=== PATIENT | female | born 1955 | race Caucasian/White ===

== ENCOUNTER 2025-03-23 11:28 | Emergency (ER) | payer MEDICARE, SELFPAY ==
--- NOTE | ~2025-03-23 | CT_ITS ---
CLINICAL HISTORY: LLQ pain hx divertic CT abdomen and pelvis with contrast Comparison: None Findings: No consolidation or effusion. Gallbladder is surgically absent. Minimal intrahepatic biliary ductal prominence. Common bile duct is normal. The spleen, pancreas and adrenal glands are unremarkable. Bilateral kidneys enhance normally with no ureteral stones and no hydronephrosis or hydroureter. No bowel obstruction, pneumoperitoneum, or pneumatosis. Mild diverticulosis with no evidence of acute diverticulitis. No free fluid. No loculated fluid collection. Pelvic contents unremarkable. Normal appendix. Mild atherosclerotic vascular disease. No aneurysm of abdominal aorta. No acute fracture. Degenerative changes lumbar spine and facet arthropathy especially at L5-S1. IMPRESSION: No acute findings. This document has been electronically signed by: Marti Guevara MD on 03/23/2025 17:38:23
[2025-03-23 11:47] VITALS: BP 119/60; PULSE 72; RESP 16; TEMP 36.6; O2SAT 99; BMI 30.5
--- NOTE | 2025-03-23 11:50 | ED_ITS ---
HPI - Abdominal Pain General Chief Complaint: Abdominal Pain Stated Complaint: Abd Pain, Lower L Side Pain, Back Pain Time Seen by Provider: 03/23/25 14:33 Source: patient and family () Mode of arrival: ambulatory Limitations: no limitations History of Present Illness ED Provider: SHERRY BAINS PA-C HPI narrative: 69 year-old female with pmhx of choleysystectomy (2019), diverticulosis/ diverticulitis presenting with LLQ abdominal pain, left flank pain, dysuria and diarrhea x 6 days. Patient reports a dull and sharp abdominal pain in the LLQ that periodically radiates to the RLQ. Her last BM was this morning. Reports intermittent diarrhea and constipation x1 week. She also reports intermittent dysuria that started around the same time. Patient reports last meal was last night and has not eaten anything today. Denies fever, chills, chest pain, sob, hematuria, vaginal discharge/bleeding, hematochezia, melena. no recent abx. no recent travel. Related Data Previous Rx's ?Medication ?Instructions ?Recorded cefuroxime axetil 250 mg tablet 250 mg PO BID 7 days #14 tabs 03/23/25 Allergies Allergy/AdvReac Type Severity Reaction Status Date / Time carbamide peroxide Allergy Unknown Verified 03/23/25 11:49 [From Debrox] clarithromycin [From Biaxin] Allergy Unknown Verified 03/23/25 11:49 doxycycline Allergy Unknown Verified 03/23/25 11:49 Penicillins [PCN] Allergy Unknown Verified 03/23/25 11:49 Review of Systems Review of Systems Yes all other systems are reviewed and are negative PMFSH Past Medical History Attestation statement: The following information was validated with the patient. Source: old records reviewed and nursing notes reviewed Physical Exam ED Vital Signs: Vital Signs - 24 hr 03/23/25 11:47 03/23/25 13:38 03/23/25 14:00 Temperature 97.8 F 97.0 F Pulse Rate 72 64 66 Respiratory Rate 16 18 18 Blood Pressure 119/60 120/59 L 149/62 H Pulse Oximetry 99 99 99 Oxygen Delivery Method Room Air Room Air Room Air 03/23/25 16:00 03/23/25 18:00 03/23/25 18:47 Temperature 97.0 F 97.0 F Pulse Rate 71 66 66 Respiratory Rate 18 16 16 Blood Pressure 122/66 123/68 123/68 Pulse Oximetry 94 96 96 Oxygen Delivery Method Room Air Room Air BMI result Body Mass Index 30.5 vital signs stable, afebrile General: Well appearing, in no acute distress. Skin: Warm, dry, intact. No rashes or lesions. Head: Normocephalic, atraumatic. EENT: Hearing is intact b/l. Conjunctiva clear. PERRLA. EOM intact. Moist mucous membranes.? Neck: Supple without LAD Cardiac: Chest wall symmetric. RRR Lungs: Normal respiratory effort without accessory muscle use. CTA bilaterally. Abdomen: soft, nondistended, ttp of LLQ without rebound or guarding. no cvat. active bs x4. Rectal exam performed with Lu wade present in room to compliance paralegal. Normal rectal sphincter tone. No external masses or lesions. Palpable soft stool in rectal vault. Stool is normal in appearance. OBS negative. Back: No midline spinous or paraspinal tenderness. No step off deformity. Ext: Upper and lower extremities atraumatic, without tenderness, deformity, swelling or erythema Neuro: AOx3. Normal speech. Ambulating with steady gait. Course Course Course Narrative: This is a Rapid Medical Exam performed in triage by Karuna Garvin PA-C. Full HPI, ROS and PE to be performed by primary ED provider. 69 yo F w/PMHx DM, presenting to the ED c/o LLQ abd pain & L flank pain w/dysuria & diarrhea x6 days PE: abd soft w/lower ttp & b/l CVAT, no rebound or guarding Plan: labs, UA, CT Reevaluation(s) Reevaluation #1: cbc without leukocytosis or left shift. normocytic anemia, no priors to compare to. OBS negative. Chemistry showing hypomagnesemia to 1.4 > repletion ordered. no other acute electrolyte abnormality requiring intervention. lipase wnl. liver function around baseline. BUN 20, normal creatinine. UA w/ leukocytes, wbcs, and trace bacteria - will treat UTI w/ ceftin. CT a/p unremarkable. > discussed all work up results w/ patient. treated w/ IVF, morphine, zofran w/ good effect. tolerating PO. Patient has remained stable throughout ED visit today. Discussed worrisome signs and symptoms and when to return to the ED. All questions answered at this time. Patient is agreeable with disposition and stable for discharge. Medical Decision Making Medical Decision Making [facility] Narrative: 69 year-old female with pmhx of choleysystectomy (2019), diverticulosis/ diverticulitis presenting with LLQ abdominal pain, left flank pain, dysuria and diarrhea x 6 days. vital signs stable, afebrile. she is nontoxic appearing and in NAD. lying comfortably on the exam bed. on exam, her abdomen is soft, nondistended, ttp of LLQ without rebound or guarding. no cvat. active bs x4. Rectal exam performed with [employer] present in room to compliance paralegal. Normal rectal sphincter tone. No external masses or lesions. Palpable soft stool in rectal vault. Stool is normal in appearance. OBS negative. Differential diagnoses: appendicitis, diverticulitis, diverticulosis, UTI, constipation, renal colic, nephrolithiasis Abdominal exam without peritoneal signs. No evidence of acute abdomen at this time. Well appearing. Low suspicion for acute hepatobiliary disease (including acute cholecystitis), acute infectious processes (pneumonia, hepatitis, pyelonephritis, PID, TOA), vascular catastrophe, bowel obstruction or viscus perforation, ovarian cyst/ rupture/ torsion. Presentation not consistent with other acute, emergent causes of abdominal pain at this time. Plan: labs, UA, CT AP, pain control, fluids, serial reassessment Differential Diagnosis Differential Diagnoses: The differential diagnosis associated with the presentation includes As above Admission/Observation Not indicated Lab Data [facility] Lab Attestation statement: I reviewed the patient's lab results. as above 03/23/25 12:07 03/23/25 12:07 Labs: Lab Results 03/23/25 03/23/25 Range/Units 12:07 17:52 WBC 5.8 (4.8-10.8) X10*3/uL RBC 4.41 (4.20-5.50) X10*6/uL Hgb 10.9 L (12.0-16.0) g/dl Hct 35.4 L (37.0-47.0) % MCV 80.3 (80.0-98.0) fL MCH 24.7 L (27.0-33.0) pg MCHC 30.8 L (31.0-35.0) g/dl RDW 15.1 (11.0-16.0) % Plt Count 270 (160-400) X10*3/uL MPV 11.0 (9.4-12.3) fL Immature Gran % (Auto) 0.3 (0.0-0.4) % Neut % (Auto) 66.3 (45-73) % Lymph % (Auto) 23.1 (20-40) % Tillman % (Auto) 6.6 (2-11) % Eos % (Auto) 2.8 (0-4) % Baso % (Auto) 0.9 (0-2) % Lymph # (Auto) 1.3 (1.2-4.9) X10*3/uL Tillman # (Auto) 0.4 (0.1-1.2) X10*3/uL Eos # (Auto) 0.2 (0.0-0.4) X10*3/uL Baso # (Auto) 0.1 (0.0-0.2) X10*3/uL Abs Immat Gran (auto) 0.02 (0.00-0.03) X10*3/uL Absolute Neuts (auto) 3.8 (2.0-8.3) x10*3/uL Absolute Nucleated RBC 0.000 (0.0-0.012) X10*3/uL Nucleated RBC % (auto) 0.0 (0.0-0.2) /100WBC Sodium 140 (135-145) mmol/L Potassium 5.0 (3.3-5.1) mmol/L Chloride 106 (96-108) mmol/L Carbon Dioxide 28 (22-29) mmol/L Anion Gap 11 L (12-20) BUN 20 H (9-16) mg/dL Creatinine 1.16 (0.5-1.4) mg/dL Estim Creat Clear Calc 42.3 Estimated GFR 46 Random Glucose 123 H (60-115) mg/dL Calcium 10.2 (8.4-10.2) mg/dL Magnesium 1.4 L* (1.6-2.6) mg/dL Total Bilirubin 0.3 (0.0-1.0) mg/dL Direct Bilirubin 0.1 (0.0-0.5) mg/dL AST 22 (5-31) U/L ALT 28 (0-31) U/L Alkaline Phosphatase 66 (39-117) U/L Total Protein 6.9 (6.5-8.0) g/dL Albumin 4.3 (3.5-5.0) g/dL Lipase 13 (8-78) U/L Urine Color Yellow Urine Appearance Clear Urine pH 5.5 (5.0-9.0) Ur Specific Montgomery 1.010 (1.005-1.025) Urine Protein Negative (Neg-Trace) mg/dL Urine Glucose (UA) Negative (Negative) mg/dL Urine Ketones Negative (Negative) mg/dL Urine Blood Negative (Negative) Urine Nitrite Negative (Negative) Ur Leukocyte Esterase Large (3+) H (Negative) Urine RBC 0-2 (0-2) /HPF Urine WBC 21-50 H (0-5) /HPF Ur Squamous Epith Cells 0-2 (0-2) /HPF Urine Bacteria Trace (None Seen) Hyaline Casts 0-2 (0-2) /LPF Stool Occult Blood NEGATIVE (NEGATIVE) Independent Interpretation I performed an independent interpretation of an: CT Scan Interpretation: ct a/p with stool throughout colon, no bowel obstruction Radiology Impression Discussion of test interpretation with radiology: I have reviewed the radiologist's reading. Radiologist Impression: Procedure(s): CT abdomen pelvis w IV con Accession Number(s): [id number] cc: Patricio Collier MD; Sherry Bains~ Report Number: [id number]: Total DLP = 660.00 mGy-cm CLINICAL HISTORY: LLQ pain hx divertic CT abdomen and pelvis with contrast Comparison: None Findings: No consolidation or effusion. Gallbladder is surgically absent. Minimal intrahepatic biliary ductal prominence. Common bile duct is normal. The spleen, pancreas and adrenal glands are unremarkable. Bilateral kidneys enhance normally with no ureteral stones and no hydronephrosis or hydroureter. No bowel obstruction, pneumoperitoneum, or pneumatosis. Mild diverticulosis with no evidence of acute diverticulitis. No free fluid. No loculated fluid collection. Pelvic contents unremarkable. Normal appendix. Mild atherosclerotic vascular disease. No aneurysm of abdominal aorta. No acute fracture. Degenerative changes lumbar spine and facet arthropathy especially at L5-S1. IMPRESSION: No acute findings. Prescription Management I considered prescription management with: Antibiotic (ceftin) Social Determinants Patient?s care significantly limited by Social Determinants of Health including: Other Social Determinant of Health Medications Administered Discontinued Medications Generic Name Dose Route Start Last Admin Trade Name Cr PRN Reason Stop Dose Admin Cefuroxime Axetil 250 mg 03/23/25 18:13 03/23/25 18:44 Cefuroxime Axetil 250 Mg Tablet PO 03/23/25 18:14 250 mg ONCE ONE Administration Magnesium Sulfate 2 gm in 50 mls @ 25 mls/hr 03/23/25 14:16 03/23/25 16:35 Magnesium Sulfate/H2o IV 03/23/25 16:15 Infused ONCE ONE Infusion Sodium Chloride 1,000 mls @ 999 mls/hr 03/23/25 14:30 03/23/25 15:36 Ns IV 03/23/25 15:30 Infused .Q1H1M CHET Infusion Iohexol 100 ml 03/23/25 16:58 03/23/25 16:58 Iohexol 350 Mg/Ml 100 Ml Infus..Btl IV 03/23/25 16:59 85 ml ONCE ONE Administration Morphine Sulfate 4 mg 03/23/25 15:00 03/23/25 15:32 Morphine Sulfate 4 Mg/Ml Cartridge IVPUSH 03/23/25 15:01 4 mg ONCE ONE Administration Protocol Ondansetron HCl 4 mg 03/23/25 15:00 03/23/25 15:32 Ondansetron Hcl 4 Mg/2 Ml Vial IVPUSH 03/23/25 15:01 4 mg ONCE ONE Administration Critical Care Time Critical Care Time Critical Care Time: No Discharge Plan Discharge Clinical Impression: Urinary tract infection, Constipation, Hypomagnesemia Patient Disposition: Home, Self-Care Instructions: Urinary Tract Infection in Women (ED) Additional Instructions: Your workup today is reassuring. Your lab work is unremarkable. The CT of your abdomen is normal. Your urine is infected. I am starting you on an antibiotic for this (ceftin). Take this as prescribed over the next 7 days. I recommend using stool softeners such as colace 100 mg twice daily. In addition, take over the counter miralax 2-3 times daily until you begin having multiple large volume bowel movements. Return with new or worsening symptoms. In the case of an emergency call 911. Prescriptions: New cefuroxime axetil 250 mg tablet 250 mg PO BID 7 Days Qty: 14 0RF Referrals: Patricio Collier MD [Primary Care Provider] - Interventions: ED Discharge Assessment Last Done: 03/23/25 18:47 Discharge Date/Time: 03/23/25 18:49 Print Language: Mexican
[2025-03-23 12:11] LABS: MANUAL DIFF FLAG NO
[2025-03-23 12:14] LABS: Appearance Urine Clear; Basophils Absolute Auto 0.1 X10*3/uL (0.0-0.2); Basophils Percent Auto 0.9 % (0-2); Color Urine Yellow; Eosinophils Absolute Auto 0.2 X10*3/uL (0.0-0.4); Eosinophils Percent Auto 2.8 % (0-4); Glucose Urine UA Negative (Negative); Hematocrit 35.4 % (37.0-47.0); Hemoglobin 10.9 g/dl (12.0-16.0); Imm Gran Abs Auto 0.02 X10*3/uL (0.00-0.03); Imm Gran Pct Auto 0.3 % (0.0-0.4); Leukocyte Esterase Urine Large (3+) (Negative); Lymphocytes Absolute Auto 1.3 X10*3/uL (1.2-4.9); Lymphocytes Percent Auto 23.1 % (20-40); Mean Corpuscular HGB Conc 30.8 g/dl (31.0-35.0); Mean Corpuscular Hemoglobin 24.7 pg (27.0-33.0); Mean Corpuscular Volume 80.3 fL (80.0-98.0); Monocytes Absolute Auto 0.4 X10*3/uL (0.1-1.2); Monocytes Percent Auto 6.6 % (2-11); Neutrophils Absolute Auto 3.8 x10*3/uL (2.0-8.3); Neutrophils Percent Auto 66.3 % (45-73); Nitrite Urine Negative (Negative); PH 5.5 (5.0-9.0); Platelet Count 270 X10*3/uL (160-400); Red Blood Count 4.41 X10*6/uL (4.20-5.50); Red Cell Distribution Width 15.1 % (11.0-16.0); UMIC TRIGGER UACC YES; Urine Blood Negative (Negative); Urine Ketones Negative (Negative); Urine Protein Negative (Neg-Trace); White Blood Count 5.8 X10*3/uL (4.8-10.8)
[2025-03-23 12:17] LABS: Bacteria Urine Trace (None Seen); Hyaline Casts Urine 0-2 /LPF (0-2); RBC Urine 0-2 /HPF (0-2); Squamous Epithelial Cell Urine 0-2 /HPF (0-2); UACC Culture Trigger YES; WBC Urine 21-50 /HPF (0-5)
[2025-03-23 12:32] LABS: Alanine Aminotransferase 28 U/L (0-31); Albumin Level 4.3 g/dL (3.5-5.0); Alkaline Phosphatase 66 U/L (39-117); Anion Gap 11 (12-20); Aspartate Amino Transferase 22 U/L (5-31); Bilirubin Direct 0.1 mg/dL (0.0-0.5); Bilirubin Total 0.3 mg/dL (0.0-1.0); Blood Urea Nitrogen 20 mg/dL (9-16); Calcium 10.2 mg/dL (8.4-10.2); Carbon Dioxide 28 mmol/L (22-29); Chloride 106 mmol/L (96-108); Creatinine Clr Calc Pharmacy 42.3; Estimated Glomerular Filt Rate 46; Glucose Random 123 mg/dL (60-115); Lipase 13 U/L (8-78); Sodium 140 mmol/L (135-145); Total Protein 6.9 g/dL (6.5-8.0)
[2025-03-23 12:33] LABS: Magnesium 1.4 mg/dL (1.6-2.6)
[2025-03-23 13:38] VITALS: BP 120/59; PULSE 64; RESP 18; TEMP 36.1; O2SAT 99
--- NOTE | 2025-03-23 13:51 | PC.NURSE ---
Patient presents with c/o feeling unwell with lower abdominal pain underneath umbilicus with assoc nausea, poor appetite and diarrhea yesterday. Patient alert and oriented, appears uncomfortable. Lungs clear bilat. Respirations even and non-labored. ABdomen soft, with positive bowel sounds. c/o lower abdominal pain with assoc pain with urination. No significant tenderness noted. Positive pedal pulses with no edema noted. Pending Provider eval.
[2025-03-23 14:00] VITALS: BP 149/62; PULSE 66; RESP 18; O2SAT 99
[2025-03-23] MEDS: 0.9 % Sodium Chloride 1,000 ML 999 ML IV (14:35)
[2025-03-23] MEDS: Magnesium Sulfate/H2O 2 GM/50 ML PIGGYBACK IV (14:35)
[2025-03-23] MEDS: Morphine Sulfate 4 MG/ML CARTRIDGE IVPUSH (15:32)
[2025-03-23] MEDS: ondansetron HCL 4 MG/2 ML VIAL IVPUSH (15:32)
--- OUTSIDE RECORDS SUMMARY | 2025-03-23 15:32 | XMS_ITS | Continuity of Care Document ---
Author Organization [facility] [address] [place] [address] Phone [phone] Care Team Providers Care Deputy Court Name Role Phone Patricio Collier M.D. Care Team Information Recyclable Products Sorter [phone] Problems Active Problems Provider Date Hypothyroidism VALENTIN Lanier Onset: 2023 Hypercholesterolemia VALENTIN Lanier Onset: 1 12/22/2023 Essential hypertension VALENTIN Lanier Onset: 10/22/2024 Type 2 diabetes mellitus VALENTIN Lanier Onse t: 10/22/2024 Social History Type Date Description Comments Sex Unknown Marital Status Legal Status: ETOH Use Rarely consumes alcohol Tobacco Use Start: Unknown Patient has never smoked Smoking Status Reviewed: 10/22/24 Patient has never sm oked Medications Active Medications SIG Qnty Indications Order ing Provider Date Levothyroxine [id number] Tablets 1 by mouth every day 90tabs Claire Ash M.D. 12/19/2024 Terconazole0.8% Cream Insert One Applicatorful Vaginally AT Bedtime For 3 Consecutive Nights Sury Calles M.D. Clotrimazole/Betamet hasone Dipropionate1-0.05% Cream Apply Topically To The Affected Area Twice Daily For 10 Days Unknown Carvedilol3.125mg Tablets Unknown [id number] Tablets Patricio Collier M.D. Metformin [id number] Tablets Patricio Collier M.D. [id number] Capsules Patricio Larson M.D. [id number] Tablets Patricio Collier M.D. Vital Signs Date Vital Result Comment 03/16/2025 10:28am BP Systolic 130 mmHg BP Diastolic 70 mmHg Heart Rate 94 /min Height 62 inches 5'2 Weight 173.25 lb BMI (Body Mass Index) 31.7 kg/m2 Results Test Acquired Date Facility Test Result H/L Range Note TSH+Free T4 03/10/2025 [facility] TSH 0.022 uIU/mL Low 0.450-4. 500 T4,Free(Direct) 2.06 ng/dL High 0.82-1.7 7 Triiodothyronine (T3), Free 03/10/2025 [facility] Triiodothyronine (T3), Free 2.4 pg/mL 2.0-4.4 TSH Rfx on Abnormal to Free T4 12/16/2024 [facility] TSH RFX On Abnormal To Free T4 <0.005 uIU/mL Low 0.450-4. 500 T4,Free (Direct) 3.49 ng/dL High 0.82-1.7 7 Thyroid Peroxidase (Tpo) Ab 10/22/2024 [facility] Thyroid Peroxidase (Tpo) Ab 12 IU/mL 0-34 Thyrotropin Receptor Ab, Serum 10/22/2024 [facility] Thyrotropin Receptor Ab, Serum <1.10 IU/L 0.00-1.7 5 TSH Rfx on Abnormal to Free T4 10/22/2024 [facility] TSH RFX On Abnormal To Free T4 0.040 uIU/mL Low 0.450-4. 500 T4,Free (Direct) 1.87 ng/dL High 0.82-1.7 7 Medical Devices Description No Information Available Encounters Type Date Location Provider Dx Diagnosis Office Visit 03/16/2025 10:00a Main Office VALENTIN Lanier E03.9 Hypothyroidis m, unspecified Assessments Date Code Description Provider 03/16/2025 E03.9 Hypothyroidism, unspecified VALENTIN Lanier Plan of Treatment Future Appointment(s):* 06/15/2025 10:15 am - VALENTIN Lanier at Main Office 03/16/2025 - VALENTIN Lanier* E03.9 Hypothyroidism, unspecified* New Labs:* TSH RFX On Abnormal To Free T4, Ordered: 03/16/25 Functional Status Description No Information Available Mental Status Description No Information Available Referrals Description No Information Available
--- OUTSIDE RECORDS SUMMARY | 2025-03-23 15:32 | XMS_ITS ---
Author Organization [facility] Address [address] [place] [address] Care Team Providers Care Refrigerator Repairman Name Role Phone Patricio Collier MD Primary Care Provider Sury Upton Unavailable [phone] REASON FOR VISIT STILL HAVING SYPTOMS Medications Medication SIG (Take, Route, Fr equency, Duration) Notes Start Date End Date Status Terconazole 3 0.8 % 1 applicatorful at b edtime Vaginal EVERY NIGHT FOR 6 NIGHTS for 6 days 09/20/2024 Active Encounters Encounter Location Date Provider Diagnosis [facility] [address] [address] 09/20/2024 Sury Calles Plan Of Treatment Medication Medication Name Sig Start Date Stop Date Notes Terconazole 3 0.8 % 1 applicatorful at b edtime Vaginal EVERY NIGHT FOR 6 NIGHTS for 6 days 09/20/2024 Progress Notes * RENNY CASTANONOB:1955 (69 yo F)Acc No.[id number]:09/20/2024 Patient:?IVANA CASTANON :1955???Age:69 Y???Sex:Female Address:[address] [place] [address], , [place], [address] * Refills? Start Terconazole 3 Cream, 0.8 %, Vaginal, 40 Gram, 1 applicatorful at bedtime, EVERY NIGHT FOR 6 NIGHTS, 6 days, Refills=5 * true * Date:? Generated for Dorisi lamonte/Ameliag/eTransmitting on:?03/23/2025 03:32 PM EDT
--- OUTSIDE RECORDS SUMMARY | 2025-03-23 15:32 | XMS_ITS | Patient Health Record ---
Author Organization [facility] Address [address] [place] [address] Care Team Providers Care Inspector Production Plastic Parts Name Role Phone Patricio Collier MD Primary Care Provider Sury Upton Unavailable [phone] GLENIS RENNER Unavailable [phone] Allergies Allergen (clinical drug ingredient) Drug/Non Drug Allergy documented on EMR Reaction Allergy Type Onset Date Status PENICILLIN unknown Drug Allergy Active BIAXIN unknown Drug Allergy Active carbamide peroxide DEBROX swelling in ears Drug Allergy Active Results Component Value Reference Range Notes PDF Report Reviewed date:09/09/2024 04:46:13 PM Interpretation: Performing Lab:[facility] [place], [address], [address], [email or web address], Phone - [phone], Director - [facility] Notes/Report: Urine Culture, Routine-[id number] Reviewed date:09/14/2024 09:26:17 AM Interpretation: Performing Lab:[facility] [place], [address], [address], [email or web address], Phone - [phone], Director - [facility] Notes/Report: Urine Culture, Routine Final report Result 1 Mixed urogenital gilbert Greater than 100,000 colony forming units per mL Urinalysis Reviewed date:09/07/2024 03:16:03 PM Interpretation: Performing Lab: Notes/Report: NITRITE NEG PH 5.0 PROTEIN NEG S.G 1.015 WBC MOD GLUCOSE LG KETONES NEG UROBILINOGEN NEG BILIRUBIN NEG BLOOD TR Reason For Referral No Information Medications Medication SIG (Take, Route, Frequency, Duration) Notes Start Date End Date Status Terconazole 3 0.8 % 1 applicatorful at b edtime Vaginal EVERY NIGHT FOR 6 NIGHTS for 6 days 09/20/2024 Active Carvedilol 3.125 MG Oral for 90 Days Active Lisinopril 20 MG 1 tablet Orally Once a day Active Simvastatin 20MG 1 ORAL daily for -3 02/10/2014 Active Omeprazole 20MG 1 ORAL daily for -3 06/15/2012 Active metFORMIN HCl 500MG 1 ORAL 2 in am, 1 @ hs 012 Active Vitamin B12 1000 MCG 1 tablet Orally Onc e a day for 30 day(s) Active Terazol 3 0.8 % 1 application at bed time Vaginal EVERY NIGHT X 3 for 3 day(s) 09/15/2024 Active Clotrimazole-Betamethasone 1-0.05 % 1 application Externally Twice a day for 10 days 09/07/2024 Active Jardiance 10 MG 1 tablet Orally Once a day for 30 day(s) 09/07/2024 Active Levothyroxine Sodium 137 MCG Oral for 90 Days Active Social History Tobacco Use: Social History Observation Description Date Details (start date - stop date) Never Smoker NA - NA Tobacco Use/Smoking Question Answer Notes Are you a nonsmoker Alcohol Screen (Audit-C) Question Answer Notes Did you have a drink contain ing alcohol in the past year? Yes How often did you have a dri nk containing alcohol in the past year? 2 to 4 times a month (2 points) How many drinks did you have on a typical day when you were drinking in the past year? 1 or 2 drinks (0 point) Points 2 Interpretation Negative Sexual History Question Answer Notes Had sex in the past 12 months (vaginal, oral, or anal)? Yes with Men only Section Notes: Marital status: Children: 2 Children Lives with: spouse Occupation: employed full-time Nutrition: average diet Exercise: regular aerobic activity Sexual activity: monogamous relationship. Contraception: menopause Smoking: Never a smoker .CE: Alcohol: occasional alcohol Text messaging while driving: no Sunscreen: yes Illicit drugs: no Seatbelt: yes Problems Problem Type SNOMED Code ICD Code Onset Dates Problem Status W/U Status Risk Notes Problem Postmenopausal atrophic vaginitis (05165013) Postmenopausal atrophic vaginitis (N95.2) Active confirmed Problem Incomplete uterovaginal prolapse (682746600) Incomplete uterovaginal prolapse (N81.2) Active confirmed Problem Herniation of rectum into vagina (738793274) Rectocele (N81.6) Active confirmed Problem Cystocele (645683026) Cystocele, unspecified (N81.10) Active confirmed Problem Hypothyroidism (47057843) Unspecified hypothyroidism (244.9) Active confirmed Major Problem Type II diabetes mellitus without complication (603821621) Diabetes mellitus without mention of complication, type II or unspecified type, not stated as uncontrolled (250.00) Active confirmed Major Problem Esophageal reflux (726673207) Esophageal reflux (530.81) Active confirmed Major Problem Postmenopausal bleeding (28005372) Postmenopausal bleeding (627.1) Active confirmed Major Problem Menopausal symptom (52470218) Symptomatic menopausal or female climacteric states (627.2) Active confirmed Major Problem Postmenopausal atrophic vaginitis (75466390) Postmenopausal atrophic vaginitis (627.3) Active confirmed Diag Problem Gynecological examination normal (222616051810562) Routine gynecological examination (V72.31) Active confirmed Major Problem Screening for malignant neoplasm of colon (121264811) Special screening for malignant neoplasms, colon (V76.51) Active confirmed Major Vital Signs Temperature 97.7 degrees Fahrenheit 09/07/2024 Blood pressure diastolic 66 mm Hg 09/07/2024 Height 62 in 09/07/2024 Blood pressure systolic 128 mm Hg 09/07/2024 Weight 172 lbs 09/07/2024 BMI 31.46 kg/m2 09/07/2024 Encounters Encounter Location Date Provider Diagnosis [facility] [address] [address] 09/07/2024 GLENIS RENNER Acute candidiasis of vulva and vagina B37.31 and Dysuria R30.[address] [address] 09/06/2024 Sury Calles [facility] [address] [address] 09/15/2024 Sury Calles [facility] [address] [address] 09/20/2024 Sury Calles Assessments Encounter Date Diagnosis (ICD Code) Assessment Notes Treatment Notes Treatment Clinical Notes Section Notes 09/07/2024 Dysuria (ICD-10 - R30.0) 09/07/2024 Acute candidiasis of vulva and vagina (ICD-10 - B37.31) Plan Of Treatment Pending Test Test Name Order Date MAMMOGRAM, SCREENING 10/24/2015 MAMMOGRAM, SCREENING 02/06/2023 CT Abdomen and Pelvis with IV contrast a nd Oral Contrast 01/29/2018 CT Abdomen and Pelvis with IV contrast a nd Oral Contrast 01/29/2018 Urinalysis 10/21/2019 THIN PREP,HPV,KARLO IF HPV+/CYT- (>29YR)( SCRN) 12/10/2016 MM Digital Mammo Screening 02/06/2023 PELVIC ULTRASOUND W/TRANSVAGINAL 018 Insurance Providers Payer Name Payer Address Payer Phone Subscriber Number Group Number Insured Name Patient Relationship to Insured Coverage Start Date Coverage End Date MEDICARE [address] ELIUD MERCADO [id number] [phone] [id number] IVANA CASTANON Self - patient is the insured MEDEX [address] [place] [address] [id number] IVANA CASTANON Self - patient is the insured Medical (General) History Medical History History ICD Code Postmenopausal atrophic vaginitis N95.2 Postmenopausal bleeding N95.0 Type 2 diabetes mellitus without complic ations E11.9 Gastro-esophageal reflux disease without esophagitis K21.9 Hypothyroidism, unspecified E03.9 Menopausal and female climacteric states N95.1 Inconclusive mammogram R92.2 Candidiasis of skin and nail B37.2 Rectocele N81.6 Incomplete uterovaginal prolapse N81.2 Cystocele, unspecified N81.10 Left lower quadrant pain R10.32 Inconclusive mammogram R92.2 Right lower quadrant pain R10.31 Surgical History Surgery Date(Month/Year) Bilateral Tubal Ligation Breast Cyst Aspiration Colonoscopy Cholecystectomy 12/20/20 Hospitalization History Reason Date(Month/Year) See Surgical Hx Abdominal Pain in Hospital x 5 days 04/19 15 2 vaginal Deliveries
--- OUTSIDE RECORDS SUMMARY | 2025-03-23 15:32 | XMS_ITS ---
Author Organization [facility] [employer] [facility] Address [address] [address] Care Team Providers Care Glass Driller Name Role Phone Patricio Collier MD Primary Care Provider Sury Upton Unavailable [phone] REASON FOR VISIT VAGINAL ISSUE IS BACK Medications Medication SIG (Take, Route, Fr equency, Duration) Notes Start Date End Date Status Terazol 3 0.8 % 1 application at bed time Vaginal EVERY NIGHT X 3 for 3 day(s) 09/15/2024 Act shivam Encounters Encounter Location Date Provider Diagnosis [facility] [address] [address] 09/15/2024 Sury Calles Plan Of Treatment Medication Medication Name Sig Start Date Stop Date Notes Terazol 3 0.8 % 1 application at bed time Vaginal EVERY NIGHT X 3 for 3 day(s) 09/15/2024 Progress Notes * RENNY CASTANONOB:1955 (69 yo F)Acc No.[id number]:09/15/2024 Patient:?IVANA CASTANON :1955???Age:69 Y???Sex:Female Address:[address] [place] [address], [address] * Refills? Start Terazol 3 Cream, 0.8 %, Vaginal, 1 Tube, 1 application at bedtime, EVERY NIGHT X 3, 3 day(s), Refills=4 * true * Date:? Generated for Printi ng/Faxing/eTransmitting on:?03/23/2025 03:31 PM EDT
--- OUTSIDE RECORDS SUMMARY | 2025-03-23 15:32 | XMS_ITS | Clinical Summary ---
Author Organization [facility] Address [address] [place] [address] Care Team Providers Care Demographic Analyst Name Role Phone Unavailable Primary Care Provider Unavailabl e Social History Tobacco Use Types Packs/Day Years Used Date Smoking Tobacco: Never Assessed Comments Unknown Sex and Gender Information Value Date Recorded Sex Assigned at Not on file Legal Sex Female 12:21 AM EST Gender Identity Not on file Sexual Orientation Not on file Plan of Treatment Health Maintenance Due Date Last Done Comments Breast Cancer Screening 1955 DTaP,Tdap,and Td Vaccines (1 - Tdap) 1972 Pneumococcal Vaccine: 50+ Ye ars (1 of 1 - PCV) 2003 Zoster Vaccines (1 of 2) 2003 COVID-19 Vaccine ( - 2023-2 5 season) 2024 Influenza Vaccine (Season Ended) 2025 RSV Immunization Adult Patie nts (1 - 1-dose 75+ series) 2028 HIB Vaccines Aged Out No longer eligi ble based on patient's age to complete this topic HPV Vaccines Aged Out No longer eligi ble based on patient's age to complete this topic Hepatitis A Vaccines Aged Out No long er eligible based on patient's age to complete this topic Hepatitis B Vaccines Aged Out No long er eligible based on patient's age to complete this topic IPV Vaccines Aged Out No longer eligi ble based on patient's age to complete this topic MMR Vaccines Aged Out No longer eligi ble based on patient's age to complete this topic Meningococcal ACWY Vaccine Aged Out N o longer eligible based on patient's age to complete this topic Meningococcal B Vaccine Aged Out No l onger eligible based on patient's age to complete this topic RSV Immunization Patients Un amado 20 months Aged Out No longer eligible b ased on patient's age to complete this topic Varicella Vaccines Aged Out No longer eligible based on patient's age to complete this topic
--- OUTSIDE RECORDS SUMMARY | 2025-03-23 15:32 | XMS_ITS ---
Author Organization [facility] Address [address] [place] [address] Care Team Providers Care Spanish Medical Interpreter Name Role Phone Patricio Collier MD Primary Care Provider Sury Upton Unavailable [phone] GLENIS RENNER Unavailable [phone] Allergies Allergen (clinical drug ingredient) Drug/Non Drug Allergy documented on EMR Reaction Allergy Type Onset Date Status PENICILLIN unknown Drug Allergy Active BIAXIN unknown Drug Allergy Active carbamide peroxide DEBROX swelling in ears Drug Allergy Active Results Component Value Reference Range Notes Urinalysis Reviewed date:09/07/2024 03:16:03 PM Interpretation: Performing Lab: Notes/Report: NITRITE NEG PH 5.0 PROTEIN NEG S.G 1.015 WBC MOD GLUCOSE LG KETONES NEG UROBILINOGEN NEG BILIRUBIN NEG BLOOD TR Urine Culture, Routine-[id number] Reviewed date:09/14/2024 09:26:17 AM Interpretation: Performing Lab:[facility], [address], [facility], Phone - [phone], [facility] Notes/Report: Urine Culture, Routine Final report Result 1 Mixed urogenital gilbert Greater than 100,000 colony forming units per mL PDF Report Reviewed date:09/09/2024 04:46:13 PM Interpretation: Performing Lab:[facility] [address], [address], [facility], Phone - [phone], Director [facility] Notes/Report: REASON FOR VISIT Vaginal Burning, Itching, Dysuria, Medications Medication SIG (Take, Route, Frequency, Duration) Notes Start Date End Date Status Carvedilol 3.125 MG Oral for 90 Days [...] e a day for 30 day(s) Active Clotrimazole-Betamethasone 1-0.05 % 1 application Externally [...] oral, or anal)? Yes with Men only Vital Signs Temperature 97.7 degrees Fahrenheit 09/07/20 24 Blood pressure systolic 128 mm Hg 09/07/20 24 Blood pressure diastolic 66 mm Hg 024 Height 62 in 09/07/2024 Weight 172 lbs 09/07/2024 BMI 31.46 kg/m2 09/07/2024 Encounters Encounter Location Date Provider Diagnosis [address] [address] 09/07/2024 GLENIS RENNER Acute candidiasis of vulva and vagina B37.31 and Dysuria R30.0 Assessments Encounter Date Diagnosis (ICD Code) Assessment Notes Treatment Notes Treatment Clinical Notes Section Notes 09/07/2024 Acute candidiasis of vulva and vagina (ICD-10 - B37.31) 09/07/2024 Dysuria (ICD-10 - R30.0) Plan Of Treatment Medication Medication Name Sig Start Date Stop Date Notes Clotrimazole-Betamethasone 1-0.05 % 1 application Externally Twice a day for 10 days 09/07/2024 Next Appt Details Follow Up: prn, Reason: Procedure Notes * Category Sub-Category Detail Notes Wet Mount Clue cells None seen Hyphae No hyphae or buds Trichomonas None seen Progress Notes * RENNY CASTANONOB:1955 (69 yo F)Acc No.[id number]:09/07/2024 PROGRESS NOTES Patient:?EMERITA CASTANON Provider:?GLENIS RENNER MD :1955???Age:69 Y???Sex:Female D ate:09/07/2024 Address:[address] [place] [address], , [facility] Pcp:Patricio Collier MD Subjective: * Chief Complaints: * ???Vaginal Burning, Itching, Dysuria, * HPI: ???MEDICAL DIRECTOR OCCUPATIONAL HEALTH (Problems):?Emerita is a [address] Calles here today for an urgent visit. ?69 year old female presents with c/o Vaginitis (Symptoms of):?Location of problem:?vaginal and vulvar problem ?Vulvar symptoms:?severe vulvar burning, severe vulvar itching ?Duration:?3 days ?Additional complaints:?a feeling like something is pulling on her insides. She also reports frequent urination and burning with voiding ?Potential risk factors:?reports no risk factors for sexually transmitted disease - x 50 yrs ?Aggravating risk factors:?none identified ? She has known diabetes - last Hgb A1c was 6.8, down from 7.? She has not taken any recent antibiotics. * ROS:?General/Constitutional:?Patient denies?fever, chills, weight gain, weight loss.?Women Only:?Denies?Painful intercourse.?Admits?Vaginal discharge/itching.?Genitourinary:?Denies?Difficulty urinating.?Admits?Frequent urination.?Admits?Painful urination.? * Medical History:? * Proctologist History:?/ Para?3/2.?Sexual activity?currently sexually active.?Last Pap Smear:?01/08/21 NIL, NEG HPV, 12/10/16 NEG HRHPV, 03/07/14.?Mammogram:?05/13/24 50-75% density, 03/21/22 50-75% density, 02/01/20 < 50% density, 01/27/19 heterogenously dense.?LMP and menses?Menopause.? Control:?bilateral tubal ligation.?Menopause: ?Began at age: ?48 ???Colonoscopy?2014, 2006.?Bone Density:?03/01/21, 11/29/15, 2006.?MEDICAL DIRECTOR OCCUPATIONAL HEALTH HISTORY MISC.?12/06/15 Dense Breast Letter 2 with Risk Assessment Form Mailed to Patient to Complete and Return to Office to Calculate Risk. 12/10/16 DB Questionairre given to patient at visit. 03/05/17 Resent # 2 Lifetime Risk Assessment Form Mailed to Patient to Complete and Mail to Office to Calculate Risk. 12/18/17 Jasmin Score = 7.2%.? * OB History:?Total pregnancies?3.?Total living children?2.?NVD?2.? * Surgical History:?Bilateral Tubal Ligation Breast Cyst Aspiration Colonoscopy Cholecystectomy 12/20/20 * Hospitalization/Major Diagno stic Procedure:?2 vaginal Deliveries Abdominal Pain in Hospital x 5 days 03/2015See Surgical Hx * Family History:?Mother: dece ased 77 yrs, car accident.?Father: alive, well.?Paternal Grand Mother: breast cancer.? * Social History:?Tobacco Use:?Tobacco Use/Smoking?Are you a?nonsmoker ???Sexual History:?Sexual History?Had sex in the past 12 months (vaginal, oral, or anal)??Yes ?with?Men only ?Details of Sexual History?Are you sexually active??Yes ???Drugs/Alcohol:?Drugs?Have you used drugs other than those for medical reasons in the past 12 months??No ?Alcohol Screen (Audit-C)?Did you have a drink containing alcohol in the past year??Yes ?How often did you have a drink containing alcohol in the past year??2 to 4 times a month (2 points) ?How many drinks did you have on a typical day when you were drinking in the past year??1 or 2 drinks (0 point) ?Points?2 ?Interpretation?Negative ???Miscellaneous:?Children: yes, 2. ?Domestic violence: no. ?Exercise: yes, Aerobic Activity. ?Home smoke detector use: yes. ?Living with: spouse. ?Marital status: . ?Natural support system: yes. ?Sexual abuse: no. ?Sexually active: yes, monogamous relationship. ?Verbal abuse: no. * Medications:?TakingVitamin B 12 1000 MCG Tablet Extended Release 1 tablet Orally Once a day metFORMIN HCl 500MG 60 1 ORAL 2 in am, 1 @ hs Omeprazole 20MG 30 1 ORAL daily Simvastatin 20MG 30 1 ORAL daily Lisinopril 20 MG Tablet 1 tablet Orally Once a day Carvedilol 3.125 MG Tablet Oral Levothyroxine Sodium 137 MCG Tablet Oral Jardiance 10 MG Tablet 1 tablet Orally Once a day Medication List reviewed and reconciled with the patientTaking Vitamin B12 1000 MCG Tablet Extended Release 1 tablet Orally Once a day Taking metFORMIN HCl 500MG 60 1 ORAL 2 in am, 1 @ hs Taking Omeprazole 20MG 30 1 ORAL daily Taking Simvastatin 20MG 30 1 ORAL daily Taking Lisinopril 20 MG Tablet 1 tablet Orally Once a day Taking Carvedilol 3.125 MG Tablet Oral Taking Levothyroxine Sodium 137 MCG Tablet Oral Taking Jardiance 10 MG Tablet 1 tablet Orally Once a day Medication List reviewed and reconciled with the patient * Allergies:?PENICILLIN: unkno wn - AllergyBIAXIN: unknown - AllergyDEBROX: swelling in ears - Allergyno[Allergies Verified] Objective: * Vitals:?Ht: 62 in, Wt: 172 l bs, BMI:31.46Index, BP: 128/66 mm Hg, Temp: 97.7 F. * Examination: ???Genitourinary - Female: ?GENERAL APPEARANCE:? alert, oriented, no apparent distress, java developer consultant present in room.?ABDOMEN:? soft, non-tender, no mass.?EXTERNAL GENITALS:?erythema inner vulva.?URETHRAL MEATUS:? normal.?URETHRA:? normal.?VAGINA:?healthy pink mucosa without any lesions, atrophy, no abnormal discharges.?ANUS/PERINEUM:? appears normal.?CERVIX:?downward, normal appearing, no cervical movement tenderness.?UTERUS:? normal size, mobile, non tender.?OVARIES:? no masses felt in adnexa, nontender.? Assessment: * Assessment: 1.?Dysuria - R30.0???2.?Acut e candidiasis of vulva and vagina - B37.31 (Primary)??? Plan: * Treatment: 2.?Dysuria?LAB: Urine Culture, Routine-[id number] ?LAB: Urinalysis (Collection Date & Time - 09/07/2024) ? Value Reference Range ?NITRITE NEG * ?PH 5.0 * ?PROTEIN NEG * ?S.G 1.015 * ?WBC MOD * ?GLUCOSE LG * ?KETONES NEG * ?UROBILINOGEN NEG * ?BILIRUBIN NEG * ?BLOOD TR AMOR Garcia 09/07/2024 03:02:36 PM EDT > * Procedures:?Wet [place]:?Clue cells?None seen.?Hyphae?No hyphae or buds.?Trichomonas?None seen.? * Procedure Codes:? * Follow Up:?prn * Images: Billing Information: * Visit Code:? 28637 Office Visit, Est Pt., Level 3. * Procedure Codes:? * Sign off status: Completed true * Provider:?GLENIS RENNER MD Date:?2023 Generated for Printi ng/Faxing/eTransmitting on:?03/23/2025 03:32 PM EDT History and Physical Notes * HPI (History of Present Illness) Category Sub-Category Detail Notes Category Not es MEDICAL DIRECTOR OCCUPATIONAL HEALTH (Problems) Vaginitis (Symptoms of): Locatio n of problem:: vaginal and vulvar problem She has known diabetes - last Hgb A1c was 6.8, down from 7. She has not taken any recent antibiotics. Vulvar symptoms:: severe vul mitch burning, severe vulvar itching Duration:: 3 days Additional complaints:: a feeling like s omething is pulling on her insides. She also reports frequent urination and burning with voiding Potential risk factors:: rep orts no risk factors for sexually transmitted disease - x 50 yrs Aggravating risk factors:: none identifi ed Examination Category Sub-Category Detail Notes Category Not es Genitourinary - Female ABDOMEN: soft, non-tender, no mass EXTERNAL GENITALS: erythema inner vulva VAGINA: healthy pink mucosa without any lesions, atrophy, no abnormal discharges CERVIX: downward, normal alek earing, no cervical movement tenderness UTERUS: normal size, mobile, non tender OVARIES: no masses felt in ad nexa, nontender GENERAL APPEARANCE: alert, oriented, no apparent distress, java developer consultant present in room URETHRAL MEATUS: normal URETHRA: normal ANUS/PERINEUM: appears normal
[2025-03-23 16:00] VITALS: BP 122/66; PULSE 71; RESP 18; O2SAT 94
[2025-03-23] MEDS: iohexoL 350 MG/ML 100 ML INFUS..BTL IV (16:58)
[2025-03-23 18:00] VITALS: BP 123/68; PULSE 66; RESP 16; TEMP 36.1; O2SAT 96
[2025-03-23 18:01] LABS: OBS Int Ctl Valid YES; OBS1 NEGATIVE (NEGATIVE)
[2025-03-23] MEDS: cefuroxime axetiL 250 MG TABLET PO (18:44)
[2025-03-23 18:47] VITALS: BP 123/68; PULSE 66; RESP 16; TEMP 36.1; O2SAT 96
== END 2025-03-23 18:49 | disposition home or self-care (01) ==
PROVIDERS: Physician Assistant; Physician Assistant Medical; Emergency Provider Emergency Medicine; PCP Internal Medicine
DX: N39.0 Urinary tract infection, site not specified (principal); K59.00 Constipation, unspecified; E83.42 Hypomagnesemia; R10.32 Left lower quadrant pain; R30.0 Dysuria; R19.7 Diarrhea, unspecified
CPT/HCPCS: 36415; 74177; 80048; 80076; 81001; 82272; 83690; 83735; 85025; 87086; 87088; 87147; 87186; 96361; 96365; 96375; 99284; 99285; J2270; J2405; J3475; Q9967

== ENCOUNTER → 2025-03-23 15:00 | Outpatient (BNV) | payer MEDICARE, SELFPAY | PROVIDERS: Emergency Provider Emergency Medicine; PCP Internal Medicine; Visit Provider Specialist | DX: R10.32 Left lower quadrant pain (principal) | CPT/HCPCS: 74177 ==